=== PATIENT | male | born 1950 | race Caucasian/White ===

== ENCOUNTER 2021-09-25 09:59 | Day surgery (SDC) | payer OTHER ==
[~2021-09-25 09:59] MED LIST: AMIODARONE HCL100 MG PO; ELIQUIS5 MG PO; LIPITOR20 MG PO; SYNTH PO; TENORMIN25 MG PO; UROXATRAL10 MG PO
[2021-09-25] MEDS ORDERED: PERCOCET 5-3251 EACH PO (11:31)
[2021-09-25] MEDS ORDERED: KETO10TA2 PO (11:32)
[2021-09-25] MEDS ORDERED: NEURONTIN300 MG PO (11:32)
[2021-09-25] MEDS ORDERED: DERMOPLAST PAIN78 GM TOP (11:33)
== END 2021-09-25 21:00 | disposition home or self-care (01) ==
LOC: CIR.AMB 09:59
PROVIDERS: ATTEND Surgery
DX: K64.1 Second degree hemorrhoids (principal); Z20.822 Contact with and (suspected) exposure to COVID-19; Z91.011 Allergy to milk products; Z91.013 Allergy to seafood; I10 Essential (primary) hypertension; I48.91 Unspecified atrial fibrillation; E03.9 Hypothyroidism, unspecified; Z87.442 Personal history of urinary calculi; Z79.01 Long term (current) use of anticoagulants